=== PATIENT | male | born 1985 | race Caucasian/White ===

== ENCOUNTER 2025-04-30 21:20 | Emergency (ER) | payer SELFPAY ==
[2025-04-30 21:33] VITALS: BP 148/96; PULSE 68; RESP 18; TEMP 36.8; O2SAT 97; BMI 18.6
--- NOTE | 2025-04-30 21:56 | CTR_ITS ---
PROCEDURE INFORMATION: Exam: CTA Head With Contrast, Arteriography Exam date and time: 04/30/2025 10:10 PM Age: 39 years old Clinical indication: Visual disturbance; Additional info: Amaurosis fugax TECHNIQUE: Imaging protocol: Computed tomographic angiography of the head with contrast. Exam focused on the arteries. 3D rendering (Not supervised by radiologist): MIP and/or 3D reconstructed images were created by the technologist. Radiation optimization: All CT scans at this facility use at least one of these dose optimization techniques: automated exposure control; mA and/or kV adjustment per patient size (includes targeted exams where dose is matched to clinical indication); or iterative reconstruction. Contrast material: OMNI 350; Contrast volume: 100 ml; Contrast route: INTRAVENOUS (IV); COMPARISON: CT head wo con* [id number] 04/30/2025 10:10 PM RADIATION DOSE METRICS: Total DLP (mGy-cm): 410.52 FINDINGS: ANTERIOR CIRCULATION: Right internal carotid artery: Suggested small right-sided carotid cavernous fistula (series 2, images 255-260) with early and asymmetric opacification of the right carotid sinus. Right middle cerebral artery: No occlusion or significant stenosis. No aneurysm. Right anterior cerebral artery: No occlusion or significant stenosis. No aneurysm. Left internal carotid artery: Intracranial segment is patent with no significant stenosis. No aneurysm. Left middle cerebral artery: No occlusion or significant stenosis. No aneurysm. Left anterior cerebral artery: No occlusion or significant stenosis. No aneurysm. POSTERIOR CIRCULATION: Right vertebral artery: No occlusion or significant stenosis. No aneurysm. Left vertebral artery: No occlusion or significant stenosis. No aneurysm. Basilar artery: No occlusion or significant stenosis. No aneurysm. Right posterior cerebral artery: No occlusion or significant stenosis. No aneurysm. Left posterior cerebral artery: No occlusion or significant stenosis. No aneurysm. Brain: No definite mass, mass effect, or midline shift. Cerebral ventricles: No ventriculomegaly. Bones/joints: Unremarkable. No acute fracture. Soft tissues: Unremarkable. 11:03 PM CLIENT EVALUATOR on 04/30/2025. The findings were acknowledged and understood. PROCEDURE INFORMATION: Exam: CTA Neck With Contrast Exam date and time: 04/30/2025 10:10 PM Age: 39 years old Clinical indication: Visual disturbance; Additional info: Amaurosis fugax TECHNIQUE: Imaging protocol: Computed tomographic angiography of the neck with contrast. Exam focused on the cervical segments of the vasculature. 3D rendering (Not supervised by radiologist): MIP and/or 3D reconstructed images were created by the technologist. Radiation optimization: All CT scans at this facility use at least one of these dose optimization techniques: automated exposure control; mA and/or kV adjustment per patient size (includes targeted exams where dose is matched to clinical indication); or iterative reconstruction. Contrast material: OMNI 350; Contrast volume: 100 ml; Contrast route: INTRAVENOUS (IV); COMPARISON: CT head wo con* [id number] 04/30/2025 10:10 PM RADIATION DOSE METRICS: Total DLP (mGy-cm): 410.52 FINDINGS: Right common carotid artery: No stenosis. No dissection or occlusion. Right internal carotid artery: No stenosis of the extracranial segment. No dissection or occlusion. Right external carotid artery: No occlusion or stenosis of the origin. Left common carotid artery: No stenosis. No dissection or occlusion. Left internal carotid artery: No stenosis of the extracranial segment. No dissection or occlusion. Left external carotid artery: No occlusion or stenosis of the origin. Right vertebral artery: No stenosis. No dissection or occlusion. Left vertebral artery: No stenosis. No dissection or occlusion. Soft tissues: Normal. No significant soft tissue swelling. Bones/joints: No acute fracture. Degenerative joint and disc disease is seen in the imaged spine. Lungs: Centrilobular emphysematous changes are present. A 10 mm (series 2, image 37) noncalcified right upper lobe pulmonary nodule is present. An 11 mm (series 2, image 21) noncalcified left upper lobe pulmonary nodule. CT/CT angio headneck* [id number] IMPRESSION: 1. Suggested small right-sided carotid cavernous fistula with early and asymmetric opacification of the right carotid sinus. No substantial dilatation of the right superior ophthalmic vein. 2. No large vessel occlusion , stenosis, dissection, or aneurysm. 3. THIS REPORT CONTAINS FINDINGS THAT MAY BE CRITICAL TO PATIENT CARE. The findings were verbally communicated via telephone with ADRIEL CHILD IMPRESSION: 1. No large vessel occlusion , stenosis, dissection, or aneurysm. 2. Emphysema. 3. Multiple pulmonary nodules with the largest measuring greater than 8 mm. Correlate with prior imaging if available. For patients at low risk (minimal or absent history of smoking and of other known risk factors), recommend CT Chest at 3-6 months, then consider CT Chest at 18-24 months. For patients at high risk (history of smoking or of other known risk factors), recommend CT Chest at 3-6 months, then CT Chest at 18-24 months. (Reference: Shirley) REFERENCES: 1. Shirley Velasquez, et al. Guidelines for Management of Incidental Pulmonary Nodules Detected on CT Images: From the Fleischner Society 2017. Radiology. 2017;284(1):228-243. 2. NASCET CRITERIA. The degree of stenosis in the cervical segment of the internal carotid artery is based on NASCET criteria. Normal is no stenosis. Mild is less than 50% stenosis. Moderate is 50-69% stenosis. Severe is 70% to 99% stenosis. Total occlusion is no detectable patent lumen.
--- NOTE | 2025-04-30 21:56 | CTR_ITS ---
PROCEDURE INFORMATION: Exam: CT Head Without Contrast Exam date and time: 04/30/2025 10:10 PM Age: 39 years old Clinical indication: Visual disturbance; Additional info: Amaurosis fugax TECHNIQUE: Imaging protocol: Computed tomography of the head without contrast. Radiation optimization: All CT scans at this facility use at least one of these dose optimization techniques: automated exposure control; mA and/or kV adjustment per patient size (includes targeted exams where dose is matched to clinical indication); or iterative reconstruction. COMPARISON: CT angio headneck* [id number] 04/30/2025 10:10 PM RADIATION DOSE METRICS: Total DLP (mGy-cm): 544 FINDINGS: Brain: Indeterminate focal hypoattenuation of the junction of the right key and midbrain (series 3, image 17, series 10, image 34, series 9, image 33). No definitive streak artifact from adjacent calvarium to clearly identified this as artifact. No acute intracranial hemorrhage. No intracranial mass or mass effect is noted. Basal cisterns are patent. Cerebral ventricles: No ventriculomegaly. Paranasal sinuses: Visualized sinuses are unremarkable. No fluid levels. Mastoid air cells: Visualized mastoid air cells are well aerated. Bones: Unremarkable. Soft tissues: Unremarkable. CT/CT head wo con* [id number] IMPRESSION: 1. Indeterminate hypoattenuation within the junction of the right parasagittal key and midbrain. Infarct or area of demyelination can not be completely excluded. If high clinical concern for acute ischemic stroke is present, MRI brain without contrast could be obtained. 2. No acute intracranial hemorrhage.
--- NOTE | 2025-04-30 21:58 | ECG_ITS ---
[facility] Test Date: 2025-04-30 Pat Name: Marco Antonio Lobo Department: Room: Gender: Male Refrigeration Specialist: : [id number] Requested By: Jenelle Guaman Order Number: [id number] Lynne MD: OFELIA FELIPE Measurements Intervals [place] Rate: 60 P: 76 DC: 119 QRS: 86 QRSD: 105 T: 66 QT: 379 QTc: 379 Interpretive Statements SINUS RHYTHM WITH SINUS ARRHYTHMIA WITH SHORT DC INTERVAL POSSIBLE RIGHT VENTRICULAR CONDUCTION DELAY [RSR (QR) IN V1/V2] LATERAL MYOCARDIAL INFARCTION , PROBABLY RECENT [40+ ms Q WAVE AND/OR ST/T ABNORMALITY IN I/aVL/V5/V6] ACUTE ID No previous ECG available for comparison Electronically Signed On 05-04-2025 23:16:01 FLOOR MOLDER by OFELIA FELIPE [email or web address]
--- NOTE | 2025-04-30 21:58 | XRR_ITS ---
PROCEDURE INFORMATION: Exam: XR Chest Exam date and time: 04/30/2025 10:17 PM Age: 39 years old Clinical indication: Other: Amaurosis fugax TECHNIQUE: Imaging protocol: Radiologic exam of the chest. Views: 1 view. COMPARISON: No relevant prior studies available. FINDINGS: Lungs: Unremarkable. No consolidation. Pleural spaces: Unremarkable. No pleural effusion. No pneumothorax. Heart/Mediastinum: Unremarkable. No cardiomegaly. Bones/joints: Unremarkable. XR/XR chest 1V portable [id number] IMPRESSION: No acute findings.
--- NOTE | 2025-04-30 22:00 | ED_ITS ---
HPI - General Adult 2 General: Chief complaint: Abdominal Pain Stated complaint: CP, N/V, Dizzy, Back pain, blurry/Black vision Time Seen by Provider: 04/30/25 21:41 History of Present Illness: Patient is a 39-year-old gentleman, smoker, not on routine medications, that presented to the ED due to loss of vision and blurry vision last p.m. Context: Patient was watching TV, when he lost complete vision in his right eye, as it returned approximately 2 minutes later, he then had blurry vision, and then was back to normal. This is the primary reason for visiting. The last 3-4 days he has had some nausea, vomiting, dizziness, without any stool changes. No sensation changes. No current issues with neurological changes. He is not on aspirin. He details he was previously diagnosed with cancer 5 years ago. Patient stated he went in for a biopsy and a right upper lobe pulmonary nodule, and his repeat chest x-ray showed the nodule being half the size. Patient was sent home for surveillance, however lost to follow-up. He has not seen a doctor since that time, according to the patient. He is not having any current shortness of breath, fevers, increasing shortness of breath with exertion, cough. Associated symptoms: Reports nausea and vomiting; Deny chest pain, dyspnea, headache(s), rash or palpitations Related Data Previous Rx's ?Medication ?Instructions ?Recorded atorvastatin 40 mg tablet (Lipitor) 40 mg PO QPM #30 t abs 05/01/25 clopidogrel 75 mg tablet (Plavix) 75 mg PO DAILY #30 t abs 05/01/25 Allergies Allergy/AdvReac Type Severity Reaction Status Date / Time No Known Allergies Allergy Verified 04/30/25 21:37 Review of Systems 2 General: Reports: 10 or more systems reviewed and unremarkable except in HPI and below Const: Denies: fever(s) or chills Eyes: Reports: change in vision, blurry vision and blind spots; Denies: photophobia, eye discomfort, eye discharge, eye redness, increased production of tears, floaters or seeing flashes ENMT: Reports: other (Patient notes dental implants unfinished, 2 years ago); Denies: throat pain, hoarseness, mouth pain, dental pain, dry mouth, nasal congestion, nasal obstruction or post nasal drip Card: Denies: chest pain or palpitations Resp: Denies: dyspnea or non-productive cough GI: Reports: nausea and vomiting; Denies: abdominal pain, change in bowel habits or pain on defecation : Denies: flank pain or difficulty urinating Musc: Denies: neck pain, back pain, extremity pain, joint pain or joint swelling Skin/Breast: Denies: rash or pruritus Neuro: Denies: headache(s) or numbness in extremities Psych: Denies: anxiety or depression Physical Exam 2 Const: COMMON NORMALS: no acute distress, average body habitus and patient oriented x3 HENMT: COMMON NORMALS: normocephalic and atraumatic HEAD & SCALP: n ormocephalic and atraumatic Eye: COMMON NORMALS: Equal, round and reactive pupils present, EOMs intact bilaterally and conjunctivae normal GENERAL EYE: appearance normal, both eyes and all related structures VISUAL ACUITY: Yes acuity normal CONJUNCTIVA: Y es conjunctivae normal PUPIL: Yes Equal, round and reactive pupils present Neck/C-Spine: COMMON NORMALS: full ROM, no lymphadenopathy, supple and no meningeal signs Lymph: LYMPHATIC: no lymphadenopathy noted Chest: COMMONS NORMALS: normal inspection of the chest and normal palpation of entire chest wall Resp: COMMON NORMALS: normal respiratory effort, No retractions and No use of accessory muscles Cardio: COMMON NORMALS: regular rate and regular rhythm RATE: regular rate RHYTHM: regular rhythm GI: COMMON NORMALS: Normal to inspection, nondistended, normoactive bowel sounds present, Soft to palpation, non-tender and No hepatosplenomegaly present PALPATION: Yes Soft to palpation and Yes No hepatosplenomegaly present : COMMON NORMALS: Yes no CVA tenderness BLADDER/KIDNEY EXAM: Yes no CVA tenderness Back/Pelvis: COMMON NORMALS: no CVA tenderness and thoracic and lumbar spine normal to inspection Extremity: COMMON NORMALS: normal to inspection, full ROM and capillary refill normal Neuro: COMMON NORMALS: patient oriented x3, CN's II-XII intact bilaterally and moves all extremities MENINGEAL SIGNS: Yes no meningeal signs Psych: COMMON NORMALS: mental status grossly normal, Normal thought process present and cooperative THOUGHT PROCESS: Normal thought process present Skin: COMMON NORMALS: no rashes or lesions noted, no wounds and turgor normal GENERAL SKIN EXAM: no rashes or lesions noted and turgor normal Course 2 Consultations: Consultation #1: D/w Dr. Reynolds, concern for cva key/midbrain, no bleed Consultation #2: Discussed with Dr. Murcia covering neurology at [facility]. Neurosurgeon stated to follow-up outpatient. Vascular stated to contact neurosurgeon. Dr. Murcia recommended Plavix, load 300 mg, aspirin 81 mg daily Vital Signs: Vital signs: Vital Signs Temperature 98.2 F 04/30/25 21:33 Pulse Rate 58 L 05/01/25 00:24 Respiratory Rate 18 04/30/25 21:33 Blood Pressure 125/69 05/01/25 00:24 Pulse Oximetry 98 05/01/25 00:24 Oxygen Delivery Me thod Room Air 04/30/25 23:32 MDM - General Adult Medical Decision Making Patient describes amaurosis fugax from last p.m. about this time, and out of the 24-hour window. All of his symptoms have now resolved. He does have a carotid bruit on the left. This is most likely TIA. CT of his head, CTA head and neck with contrast have been ordered given the concern of carotid pathology. Patient will most likely need to be loaded on clopidogrel after discernment of initial CT of his head for aspirin. Discussed all of this with patient. Will also obtain routine labs, and refer to case management for primary care assignment. Medical Records I reviewed the patient's medical records. Lab Data I reviewed the patient's lab results. 04/30/25 22:36 04/30/25 22:[address] 04/30/25 21:56 IMPRESSION: 1. Indeterminate hypoattenuation within the junction of the right parasagittal key and midbrain. Infarct or area of demyelination can not be completely excluded. If high clinical concern for acute ischemic stroke is present, MRI brain without contrast could be obtained. 2. No acute intracranial hemorrhage. ADDENDUM: 04/30/25 1640 With additional clinical history provided, short-term interval follow-up CT head without contrast can be obtained to document stability/resolution of the pontine abnormality. THIS REPORT CONTAINS FINDINGS THAT MAY BE CRITICAL TO PATIENT CARE. The findings were verbally communicated via telephone with ADRIEL GUAMAN at 10:48 PM SCENIC DESIGNER on 04/30/2025. The findings were acknowledged and understood. Head/Neck CTA 04/30/25 21:56 IMPRESSION: 1. Suggested small right-sided carotid cavernous fistula with early and asymmetric opacification of the right carotid sinus. No substantial dilatation of the right superior ophthalmic vein. 2. No large vessel occlusion , stenosis, dissection, or aneurysm. 3. THIS REPORT CONTAINS FINDINGS THAT MAY BE CRITICAL TO PATIENT CARE. The findings were verbally communicated via telephone with ADRIEL GUAMAN at IMPRESSION: 1. No large vessel occlusion , stenosis, dissection, or aneurysm. 2. Emphysema. 3. Multiple pulmonary nodules with the largest measuring greater than 8 mm. Correlate with prior imaging if available. For patients at low risk (minimal or absent history of smoking and of other known risk factors), recommend CT Chest at 3-6 months, then consider CT Chest at 18-24 months. For patients at high risk (history of smoking or of other known risk factors), recommend CT Chest at 3-6 months, then CT Chest at 18-24 months. (Reference: Shirley) REFERENCES: 1. Shirley H, et al. Guidelines for Management of Incidental Pulmonary Nodules Detected on CT Images: From the Fleischner Society 2017. Radiology. 2017;284(1):228-243. 2. NASCET CRITERIA. The degree of stenosis in the cervical segment of the internal carotid artery is based on NASCET criteria. Normal is no stenosis. Mild is less than 50% stenosis. Moderate is 50-69% stenosis. Severe is 70% to 99% stenosis. Total occlusion is no detectable patent lumen. Chest X-Ray 04/30/25 21:58 IMPRESSION: No acute findings. Laboratory Results WBC 9.62 10^3/uL (3.29-11.43) 04/30/25 22:36 RBC 4.80 10^6/uL (3.85-5.65) 04/30/25 22:36 Hgb 15.20 g/dL (11.27-16.99) 04/30/25 22:36 Hct 44.2 % (37-53) 04/30/25 22:36 MCV 92.1 fl (82-101) 04/30/25 22:36 MCH 31.7 pg (27-33) 04/30/25 22:36 MCHC 34.4 g/dL (30-55) 04/30/25 22:36 RDW 12.2 % (12.1-15.1) 04/30/25 22:36 Plt Count 251 10^3/cmm (157-399) 04/30/25 22:36 MPV 10.4 fL (7.4-10.4) 04/30/25 22:36 Neut % (Auto) 60.3 % 04/30/25 22:36 Lymph % (Auto) 29.0 % 04/30/25 22:36 [place] % (Auto) 8.3 % 04/30/25 22:36 Eos % (Auto) 1.8 % 04/30/25 22:36 Baso % (Auto) 0.5 % 04/30/25 22:36 Neut # (Auto) 5.80 10^3/uL (1.8-7.7) 04/30/25 22:36 Lymph # (Auto) 2.8 10^3/uL (0.8-4.8) 04/30/25 22:36 [place] # (Auto) 0.8 10^3/uL (0.2-0.9) 04/30/25 22:36 Eos # (Auto) 0.2 10^3/uL (0.0-0.8) 04/30/25 22:36 Baso # (Auto) 0.1 10^3/uL (0.0-0.1) 04/30/25 22:36 Nucleated RBC % (auto) 0 % 04/30/25 22:36 Nucleated RBCs # 0.0 /100WBC 04/30/25 22:36 Sodium 137 mmol/L (136-145) 04/30/25 22:36 Potassium 3.7 mmol/L (3.5-5.1) 04/30/25 22:36 Chloride 102 mmol/L (98-107) 04/30/25 22:36 Carbon Dioxide 28 mmol/L (22-29) 04/30/25 22:36 Anion Gap 10.7 (5-19) 04/30/25 22:36 BUN 8 mg/dL (6-20) 04/30/25 22:36 Creatinine 0.8 mg/dL (0.7-1.2) 04/30/25 22:36 GFR Calculation 106.5 mL/min (90-130) 04/30/25 22:36 Glucose 92 mg/dL (65-115) 04/30/25 22:36 Calculated Osmolality 282 mOsm/kg (285-295) L 04/30/25 22:36 Calcium 9.2 mg/dL (8.5-10.5) 04/30/25 22:36 Total Bilirubin 0.8 mg/dL (0.15-1.2) 04/30/25 22:36 AST 23 U/L (0-40) 04/30/25 22:36 ALT 18 U/L (0-41) 04/30/25 22:36 Alkaline Phosphatase 92 U/L (40-130) 04/30/25 22:36 C-Reactive Protein 3.0 mg/L (0.0-4.9) 04/30/25 22:36 Total Protein 6.8 g/dL (6.6-8.7) 04/30/25 22:36 Albumin 4.3 g/dL (3.5-5.2) 04/30/25 22:36 Globulin 2.5 g/dL (1.3-4.6) 04/30/25 22:36 TSH 2.10 uIU/mL (0.27-4.20) 04/30/25 22:36 Urine Color Yellow (Yellow) 04/30/25 22:37 Urine Appearance Clear (CLEAR) 04/30/25 22:37 Urine pH 8.0 (5-7) A 04/30/25 22:37 Ur Specific [place] 1.070 (1.005-1.030) H 04/30/25 22:37 Urine Protein Negative (Negative) 04/30/25 22:37 Urine Glucose (UA) Negative (Normal) 04/30/25 22:37 Urine Ketones Negative (Negative) 04/30/25 22:37 Urine Blood Negative (Negative) 04/30/25 22:37 Urine Nitrate Negative (Negative) 04/30/25 22:37 Urine Bilirubin Negative (Negative) 04/30/25 22:37 Urine Urobilinogen 0.2 mg/dL (Negative) 04/30/25 22:37 Ur Leukocyte Esterase Negative (Negative) 04/30/25 22:37 Urine RBC 0-2 /hpf (0-2) 04/30/25 22:37 Urine WBC 0-5 /hpf (0-5) 04/30/25 22:37 Ur Squamous Epith Cells 0-5 /hpf (0-5) 04/30/25 22:37 Amorphous Sediment Not Reportable 04/30/25 22:37 Urine Bacteria None seen /hpf (NONE) 04/30/25 22:37 Hyaline Casts 0-4 /lpf H 04/30/25 22:37 XR interpretation done by ED provider, pending radiology final review Discharge Plan Discharge Patient Disposition: Home 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 This can be coated. At the pharmacy: Plavix 75 mg. Take 1 daily. This is a super aspirin for treatment. Lipitor 40 mg. You take this at night. This is a cholesterol medication. This helps with the inflammatory responses of plaque deposition. -Follow-up: Primary care physician. Case management has been made order - Follow-up: Neurology recommends neurosurgery outpatient. Case management order has been made Thank you for choosing [facility] for your healthcare needs today. You have been screened and evaluated and felt safe for discharge. Health conditions do change or evolve sometimes and as such it is important that you follow up with your Primary Doctor to be re checked, 3-5 days is a general good time frame for follow up. You are always welcome to return to the ED for re assessment if your symptoms are worsening or you have new concerns Print Language: Sinhala Coding Level of Care Code ED Manager Water for Gali Yoder
[2025-04-30 22:08] VITALS: BP 137/76; O2SAT 97
[2025-04-30 22:43] LABS: Hematocrit 44.2 % (37-53); Hemoglobin 15.20 g/dL (11.27-16.99); Mean Corpuscular HGB Conc 34.4 g/dL (30-55); Mean Corpuscular Hemoglobin 31.7 pg (27-33); Mean Corpuscular Volume 92.1 fl (82-101); Nucleated Red Blood Cells % 0 %; Platelet Count 251 10^3/cmm (157-399); Red Blood Count 4.80 10^6/uL (3.85-5.65); White Blood Count 9.62 10^3/uL (3.29-11.43)
[2025-04-30 22:52] LABS: Glucose Urine UA Negative (Normal); Nitrate Urine Negative (Negative)
[2025-04-30 22:57] LABS: Add Urine Microscopic? YES
[2025-04-30 23:02] LABS: Specific Gravity, Urine 1.070 (1.005-1.030)
[2025-04-30 23:13] LABS: Alanine Aminotransferase 18 U/L (0-41); Albumin Level 4.3 g/dL (3.5-5.2); Alkaline Phosphatase 92 U/L (40-130); Anion Gap 10.7 (5-19); Aspartate Amino Transferase 23 U/L (0-40); Blood Urea Nitrogen 8 mg/dL (6-20); Calcium 9.2 mg/dL (8.5-10.5); Carbon Dioxide 28 mmol/L (22-29); Chloride 102 mmol/L (98-107); Creatinine Clr Calc Pharmacy 101.3495; Globulin 2.5 g/dL (1.3-4.6); Glucose 92 mg/dL (65-115); Osmolality Calculated 282 mOsm/kg (285-295); Potassium 3.7 mmol/L (3.5-5.1); Sodium 137 mmol/L (136-145); Thyroid Stimulating Hormone 2.10 uIU/mL (0.27-4.20); Total Protein 6.8 g/dL (6.6-8.7)
[2025-04-30 23:32] VITALS: BP 126/69; PULSE 100; O2SAT 99
[2025-04-30 23:56] VITALS: BP 126/69; PULSE 60; O2SAT 95
[2025-05-01 00:24] VITALS: BP 125/69; PULSE 58; O2SAT 98
[2025-05-01 01:03] VITALS: BP 126/69; PULSE 60; O2SAT 96
[2025-05-01 01:09] VITALS: BP 126/69; PULSE 60; O2SAT 96
== END 2025-05-01 01:10 | disposition home or self-care (01) ==
PROVIDERS: Emergency Provider Physician Assistant
DX: I63.9 Cerebral infarction, unspecified (principal); I67.1 Cerebral aneurysm, nonruptured; Z79.02 Long term (current) use of antithrombotics/antiplatelets
CPT/HCPCS: 36415; 70450; 70496; 70498; 71045; 80053; 81001; 84443; 85025; 86140; 93005; 99285; J9999

== ENCOUNTER 2025-05-04 11:18 | Emergency (ER) | payer SELFPAY ==
[2025-05-04 11:32] VITALS: BP 114/78; PULSE 55; TEMP 36.7; O2SAT 99; BMI 18.8
[2025-05-04 12:33] LABS: Hematocrit 50.5 % (37-53); Hemoglobin 17.30 g/dL (11.27-16.99); Mean Corpuscular HGB Conc 34.3 g/dL (30-55); Mean Corpuscular Hemoglobin 31.2 pg (27-33); Mean Corpuscular Volume 91.2 fl (82-101); Nucleated Red Blood Cells % 0 %; Platelet Count 309 10^3/cmm (157-399); Red Blood Count 5.54 10^6/uL (3.85-5.65); White Blood Count 11.25 10^3/uL (3.29-11.43)
[2025-05-04 12:51] LABS: Alanine Aminotransferase 21 U/L (0-41); Albumin Level 4.8 g/dL (3.5-5.2); Alkaline Phosphatase 110 U/L (40-130); Anion Gap 19.1 (5-19); Aspartate Amino Transferase 30 U/L (0-40); Blood Urea Nitrogen 14 mg/dL (6-20); Calcium 9.7 mg/dL (8.5-10.5); Carbon Dioxide 25 mmol/L (22-29); Chloride 98 mmol/L (98-107); Globulin 3.3 g/dL (1.3-4.6); Glucose 84 mg/dL (65-115); Lipase 35 U/L (13-60); Osmolality Calculated 286 mOsm/kg (285-295); Potassium 4.1 mmol/L (3.5-5.1); Sodium 138 mmol/L (136-145); Total Protein 8.1 g/dL (6.6-8.7)
[2025-05-04 13:17] VITALS: BP 121/73; PULSE 68; RESP 14; O2SAT 100
--- NOTE | 2025-05-04 13:20 | ED_ITS ---
HPI - Male Genitourinary 2 General: Chief complaint: Urogenital-Male Stated complaint: abd pain Time Seen by Provider: 05/04/25 12:58 Source: patient Mode of arrival: ambulatory Limitations: no limitations History of Present Illness: 39-year-old male states he is been havin g left-sided flank pain that started last night states the pain was sharp in nature he states that over the last hour the pain is less and is currently 2 out of 10 denies any fevers denies any dysuria denies any vomiting or diarrhea has had a history of kidney stones in the past. Related Data Previous Rx's ?Medication ?Instructions ?Recorded atorvastatin 40 mg tablet (Lipitor) 40 mg PO QPM #30 t abs 05/01/25 clopidogrel 75 mg tablet (Plavix) 75 mg PO DAILY #30 t abs 05/01/25 methocarbamol 750 mg tablet 750 mg PO Q6H PRN spasms # 20 tabs 05/04/25 naproxen 500 mg tablet (Naprosyn) 500 mg PO BID PRN pa in #20 tabs 05/04/25 Allergies Allergy/AdvReac Type Severity Reaction Status Date / Time No Known Allergies Allergy Verified 05/04/25 11:38 Review of Systems 2 : Reports: flank pain Physical Exam 2 Const: COMMON NORMALS: no acute distress, patient oriented x3 and healthy appearing HENMT: COMMON NORMALS: normocephalic and atraumatic HEAD & SCALP: n ormocephalic and atraumatic Neck/C-Spine: COMMON NORMALS: full ROM and supple Chest: COMMONS NORMALS: normal inspection of the chest Resp: COMMON NORMALS: normal respiratory effort Cardio: COMMON NORMALS: regular rate, regular rhythm and No murmurs present (Cardio) RATE: regular rate RHYTHM: regular rhythm GI: COMMON NORMALS: Normal to inspection, nondistended, normoactive bowel sounds present, Soft to palpation, non-tender and no masses PALPATION: Yes Soft to palpation Extremity: COMMON NORMALS: normal to inspection and full ROM Neuro: COMMON NORMALS: patient oriented x3, moves all extremities and no focal motor deficits Psych: COMMON NORMALS: mental status grossly normal, Normal thought process present and cooperative THOUGHT PROCESS: Normal thought process present Skin: COMMON NORMALS: no rashes or lesions noted and no wounds GENERAL SKIN EXAM: no rashes or lesions noted Course 2 Vital Signs: Vital signs: Vital Signs Temperature 98.1 F 05/04/25 11:32 Pulse Rate 62 05/04/25 13:33 Respiratory Rate 14 05/04/25 13:17 Blood Pressure 116/67 05/04/25 13:33 Pulse Oximetry 98 05/04/25 13:33 Oxygen Delivery Me thod Room Air 05/04/25 13:17 MDM - Male Medical Decision Making Patient presents with left flank pain differential includes kidney stone, pyelonephritis, muscular pain. Patient's blood work here showed no significant abnormality no signs of acute infection urinalysis shows no signs of UTI his pain is resolved currently he has no tenderness on exam patient likely had passed a kidney stone. Do not feel that he needs a CAT scan at this time he is stable for discharge we will prescribe Naprosyn and Zofran he is return if worsening he understands agrees to plan. Medical Records I reviewed the patient's medical records. Lab Data I reviewed the patient's lab results. 05/04/25 12:12 05/04/25 12:12 Laboratory Results WBC 11.25 10^3/uL (3.29-11.43) 05/04/25 12:12 RBC 5.54 10^6/uL (3.85-5.65) 05/04/25 12:12 Hgb 17.30 g/dL (11.27-16.99) H 05/04/25 12:12 Hct 50.5 % (37-53) 05/04/25 12:12 MCV 91.2 fl (82-101) 05/04/25 12:12 MCH 31.2 pg (27-33) 05/04/25 12:12 MCHC 34.3 g/dL (30-55) 05/04/25 12:12 RDW 12.1 % (12.1-15.1) 05/04/25 12:12 Plt Count 309 10^3/cmm (157-399) 05/04/25 12:12 MPV 10.3 fL (7.4-10.4) 05/04/25 12:12 Neut % (Auto) 75.2 % 05/04/25 12:12 Lymph % (Auto) 17.7 % 05/04/25 12:12 [place] % (Auto) 5.4 % 05/04/25 12:12 Eos % (Auto) 0.9 % 05/04/25 12:12 Baso % (Auto) 0.5 % 05/04/25 12:12 Neut # (Auto) 8.46 10^3/uL (1.8-7.7) H 05/04/25 12:12 Lymph # (Auto) 2.0 10^3/uL (0.8-4.8) 05/04/25 12:12 [place] # (Auto) 0.6 10^3/uL (0.2-0.9) 05/04/25 12:12 Eos # (Auto) 0.1 10^3/uL (0.0-0.8) 05/04/25 12:12 Baso # (Auto) 0.1 10^3/uL (0.0-0.1) 05/04/25 12:12 Nucleated RBC % (auto) 0 % 05/04/25 12:12 Nucleated RBCs # 0.0 /100WBC 05/04/25 12:12 Sodium 138 mmol/L (136-145) 05/04/25 12:12 Potassium 4.1 mmol/L (3.5-5.1) 05/04/25 12:12 Chloride 98 mmol/L (98-107) 05/04/25 12:12 Carbon Dioxide 25 mmol/L (22-29) 05/04/25 12:12 Anion Gap 19.1 (5-19) H 05/04/25 12:12 BUN 14 mg/dL (6-20) 05/04/25 12:12 Creatinine 0.9 mg/dL (0.7-1.2) 05/04/25 12:12 GFR Calculation 93.0 mL/min (90-130) 05/04/25 12:12 Glucose 84 mg/dL (65-115) 05/04/25 12:12 Calculated Osmolality 286 mOsm/kg (285-295) 05/04/25 12:12 Calcium 9.7 mg/dL (8.5-10.5) 05/04/25 12:12 Total Bilirubin 1.5 mg/dL (0.15-1.2) H 05/04/25 12:12 AST 30 U/L (0-40) 05/04/25 12:12 ALT 21 U/L (0-41) 05/04/25 12:12 Alkaline Phosphatase 110 U/L (40-130) 05/04/25 12:12 Total Protein 8.1 g/dL (6.6-8.7) 05/04/25 12:12 Albumin 4.8 g/dL (3.5-5.2) 05/04/25 12:12 Globulin 3.3 g/dL (1.3-4.6) 05/04/25 12:12 Lipase 35 U/L (13-60) 05/04/25 12:12 Urine Color Yellow (Yellow) 05/04/25 13:22 Urine Appearance Clear (CLEAR) 05/04/25 13:22 Urine pH 6.0 (5-7) 05/04/25 13:22 Ur Specific [place] 1.017 (1.005-1.030) 05/04/25 13:22 Urine Protein Negative (Negative) 05/04/25 13:22 Urine Glucose (UA) Negative (Normal) 05/04/25 13:22 Urine Ketones 1+ (Negative) H 05/04/25 13:22 Urine Blood Non-haemolysed trace (Negative) 05/04/25 13:22 Urine Nitrate Negative (Negative) 05/04/25 13:22 Urine Bilirubin Negative (Negative) 05/04/25 13:22 Urine Urobilinogen 1.0 mg/dL (Negative) 05/04/25 13:22 Ur Leukocyte Esterase Negative (Negative) 05/04/25 13:22 Urine RBC 0-2 /hpf (0-2) 05/04/25 13:22 Urine WBC 0-5 /hpf (0-5) 05/04/25 13:22 Ur Squamous Epith Cells 0-5 /hpf (0-5) 05/04/25 13:22 Amorphous Sediment Not Reportable 05/04/25 13:22 Urine Bacteria None seen /hpf (NONE) 05/04/25 13:22 Hyaline Casts 0-4 /lpf H 05/04/25 13:22 No radiology studies performed this visit Discharge Plan Discharge Patient Disposition: Home Clinical Impression: Left flank pain Condition: Stable Prescriptions: New methocarbamol 750 mg tablet 750 mg PO Q6H PRN (Reason: spasms) Qty: 20 0RF naproxen [Naprosyn] 500 mg tablet 500 mg PO BID PRN (Reason: pain) Qty: 20 0RF No Action atorvastatin [Lipitor] 40 mg tablet 40 mg PO QPM Qty: 30 0RF clopidogrel [Plavix] 75 mg tablet 75 mg PO DAILY Qty: 30 0RF Discharge Orders: Discharge ED (Routine); Ordered 05/04/25 Ordered By: Samm Quiroz Discharge Diet: Advance as tolerated Discharge Activity: Resume usual activity Patient Instructions: Flank Pain (ED) Print Language: Irish Coding Level of Care Code ED [employer] for Gali Yoder
[2025-05-04 13:27] LABS: Glucose Urine UA Negative (Normal); Nitrate Urine Negative (Negative); Specific Gravity, Urine 1.017 (1.005-1.030)
[2025-05-04 13:29] LABS: Add Urine Microscopic? YES
[2025-05-04] MEDS: ondansetron 2 mg/ML SDV 2 mL 4 MG IM (13:30)
[2025-05-04 13:33] VITALS: BP 116/67; PULSE 62; O2SAT 98
[2025-05-04 13:48] VITALS: BP 113/84; PULSE 70; O2SAT 98
== END 2025-05-04 13:49 | disposition home or self-care (01) ==
PROVIDERS: Emergency Provider Emergency Medicine
DX: R10.A2 Flank pain, left side (principal); Z79.02 Long term (current) use of antithrombotics/antiplatelets
CPT/HCPCS: 36415; 80053; 81001; 83690; 85025; 96372; 99284; J1885; J2405